=== PATIENT | male | born 1970 | race Caucasian/White ===

== ENCOUNTER 2016-10-20 19:00 | Emergency (ER) | payer SELFPAY ==
[~2016-10-20] VITALS: Ht 177.8 cm; Wt 81.6 kg
[~2016-10-20 19:00] MED LIST: FLOMAX0.4 MG ORAL; METFORMIN HCL850 M1 ORAL; NORCO 10/3251 EA ORAL; NORCO 5-325 TA1 EACH ORAL
[2016-10-20 19:30] VITALS: BP 151/64
--- NOTE | 2016-10-20 19:59 | Emergency Room Report ---
History of Present Illness General Chief Complaint: Pain Present Illness HPI 46 YO Male presents to the ED C/O exacerbation of his sciatic right leg pain after moving a refrigerator today. Pt states that his doctor is out of town until Sunday and that he just requires something to manage his symptoms in the mean time. pt. denies new trauma or fall, fevers, chills, recent spinal procedures, or hx of cancer pt. states muscle relaxers do not provide adequate relief of his symptoms. pt. denies change in character to his pain. Pt has hx of herniated disk and is managed by his doctor regularly. Denies numbness tingling or loss of sensation or gross motor movements of the extremities, incontinence of bowel or bladder. Denies CP, Palpitations, LOC, AMS, dizziness, Changes in Vision, Sensation, paresthesias, or a sudden severe headache. Allergies: Coded Allergies: KETOROLAC TROMETHAMINE (Verified Allergy, Severe, 09/08/12) MORPHINE (Verified Allergy, Severe, 09/08/12) Patient History Past Medical History: see triage record Past Surgical History: none Pertinent Family History: none Reviewed Nursing Documentation: PMH: Agreed, PSxH: Agreed Nursing Documentation-PMH Hx Hypertension: Yes Hx Diabetes: Yes Hx Gastrointestinal Problems: Yes - GETS KIDNEY STONES EVERY YEAR Hx Dialysis: No - [facility] Review of Systems All Other Systems: negative except mentioned in HPI Physical Exam Vital Signs Date Time Temp Pulse Resp B/P Pulse Ox O2 Delivery O2 Flow Rate FiO2 10/20/16 19:06 98.4 77 20 151/64 96 Room Air Sp02 EP Interpretation: reviewed, normal General Appearance: no apparent distress, alert, GCS 15, non-toxic Head: normocephalic, atraumatic Eyes: bilateral eye PERRL, bilateral eye normal inspection ENT: hearing grossly normal, normal pharynx, no angioedema, normal voice Neck: full range of motion, supple/symm/no masses Respiratory: lungs clear, normal breath sounds, speaking full sentences Cardiovascular #1: regular rate, rhythm, no edema Musculoskeletal: back normal, gait/station normal, normal range of motion, tender - right lumbar paraspinal and gluteal ttp. no midline ttp, no erythema, no swelling or obvious deformity. Neurologic: alert, oriented x3, responsive, motor strength/tone normal, sensory intact, speech normal Psychiatric: judgement/insight normal, memory normal, mood/affect normal Skin: normal color, no rash, warm/dry, well hydrated Medical Decision Making PA Attestation Dr. Michele is my supervising Physician whom patient management has been discussed with. Diagnostic Impression: Primary Impression: acute lumbar strain Additional Impression: Sciatic leg pain ER Course 46 YO Male presents to the ED C/O exacerbation of his sciatic right leg pain after moving a refrigerator today. Pt states that his doctor is out of town until Sunday and that he just requires something to manage his symptoms in the mean time. pt. denies new trauma or fall, fevers, chills, recent spinal procedures, or hx of cancer pt. states muscle relaxers do not provide adequate relief of his symptoms. pt. denies change in character to his pain. Pt has hx of herniated disk and is managed by his doctor regularly. Denies numbness tingling or loss of sensation or gross motor movements of the extremities, incontinence of bowel or bladder. Denies CP, Palpitations, LOC, AMS, dizziness, Changes in Vision, Sensation, paresthesias, or a sudden severe headache. Ddx considered but are not limited to Fracture, dislocation, contusion, epidural abscess, Sprain/Strain/Spasm Vital signs: are WNL, pt. is afebrile H&PE are most consistent with sciatica Pt. unable to tolerate straight leg raise with the right leg. ORDERS: X-ray not required at this time, no spinous process tenderness ED INTERVENTIONS: -[place] PO - Reviewed pt. CURES report and it is consistent with pt. history. no active rx at this time. will provide pt. very limited number of medication to allow him follow up with his PCP on Sunday. DISCHARGE: At this time pt. is stable for d/c to home. Will provide printed patient care instructions, and any necessary prescriptions. Care plan and follow up instructions have been discussed with the patient prior to discharge. Last Vital Signs Date Time Temp Pulse Resp B/P Pulse Ox O2 Delivery O2 Flow Rate FiO2 10/20/16 19:06 98.4 77 20 151/64 96 Room Air Disposition: AGAINST MEDICAL ADVICE Condition: Stable Scripts Hydrocodone Bit/Acetaminophen 5-325* (NORCO 5-325 TABLET*) 1 Each Tablet 1 TAB ORAL Q8HR Y for For Pain, #5 TAB Prov: Estelle Hutchins 10/20/16 Patient Instructions: Lumbosacral Strain Additional Instructions: Take medications as directed. Follow up with a Primary Care Provider in 3-5 days, even if your symptoms have resolved. --Please review list of primary care clinics, if you do not already have a primary care provider Return sooner to ED if new symptoms occur, or current symptoms become worse. Do not drink alcohol, drive, or operate heavy machinery while taking [place] as this may cause drowsiness. - Please note that this Emergency Department Report was dictated using [employer] picker technology software, occasionally this can lead to erroneous entry secondary to interpretation by the dictation equipment. Estelle Hutchins Oct 20, 2016 19:59
[2016-10-20] MEDS ORDERED: Norco 5mg/325mg tab ORAL ONE (20:00)
[2016-10-20] MEDS ORDERED: NORCO 5-325 TA1 EAC1 ORAL (20:08)
[2016-10-20 21:00] VITALS: BP 151/64
== END 2016-10-20 21:00 | disposition left against medical advice (07) ==
LOC: EMR 19:30
DX: M54.31 Sciatica, right side (principal); S39.012A Strain of muscle, fascia and tendon of lower back, initial encounter; I10 Essential (primary) hypertension; E11.9 Type 2 diabetes mellitus without complications; Z88.6 Allergy status to analgesic agent; Z87.442 Personal history of urinary calculi; X58.XXXA Exposure to other specified factors, initial encounter; Y92.9 Unspecified place or not applicable
CPT/HCPCS: 99283